=== PATIENT | male | born 1990 | race Caucasian/White ===

== ENCOUNTER 2016-12-09 19:43 | Emergency (ER) | payer SELFPAY ==
[~2016-12-09] VITALS: Ht 170.2 cm; Wt 80.0 kg
[~2016-12-09 19:43] MED LIST: SULF1TAB24 PO
[2016-12-09] MEDS ORDERED: FAMOTIDINE 20 MG/2 ML VIAL IVP ONE (20:00)
[2016-12-09] MEDS ORDERED: methylPREDNISolone SOD SUCC PF 125 MG/2 ML VIAL. IV ONE (20:00)
[2016-12-09] MEDS ORDERED: IV NORMAL SALINE 1,000ML 1,000 ML IV SCH (20:20)
--- NOTE | 2016-12-09 21:37 | PHYS DOC ---
General Chief Complaint: ALLERGIC REACTION Stated Complaint: ALLERGIC REACTION Time Seen by MD: 19:50 Source: patient Exam Limitations: no limitations Problems: History of Present Illness Initial Comments Pt is 26/M to ED c/o allergic rxn. Pt states earlier today he was stung right ear by bee. After about an hour states his head began to itch and he took benadryl. Thru next hour developed whole body red rash and facial swelling, came for evaluation. No cough/lump in throat/doc/sob, pt has h/o anaphylaxis with beesting ED VS stable 131/75, 97% RA. Timing/Duration: getting worse, other Severity: moderate Modifying Factors: improves with other Associated Symptoms: rash Allergies: Coded Allergies: bee venom protein (honey bee) (Verified Allergy, Severe, Anaphylaxis, 12/09) Past Medical History Medical History: no pertinent history Surgical History: no surgical history Family History Significant Family History: no pertinent family hx Social History Smoker: non-smoker Alcohol: none Drugs: none Review of Systems Constitutional: denies chills, denies diaphoresis, denies fever, denies malaise EENTM: see HPI, denies eye pain, denies blurred vision, denies tearing, ear pain, denies ear discharge, denies nose pain Respiratory: denies cough, denies shortness of breath, denies wheezing Cardiovascular: denies chest pain, denies palpitations, denies syncope Gastrointestinal: denies abdominal pain, denies diarrhea, denies nausea, denies vomiting Musculoskeletal: denies back pain, denies joint swelling, denies neck pain Skin: see HPI Psychiatric/Neurological: denies headache, denies numbness, denies paresthesia Immunological/Allergic: see HPI Physical Exam General Appearance: WD/WN, moderate distress Eyes: bilateral eye normal inspection, bilateral eye PERRL, bilateral eye EOMI Ear, Nose, Throat: hearing grossly normal, normal pharynx, other (facial redness/soft tissue swelling airway patent) Neck: non-tender, supple Respiratory: normal breath sounds, no respiratory distress Cardiovascular: normal peripheral pulses, regular rate, rhythm Back: no CVA tenderness, no vertebral tenderness Extremities: non-tender, normal inspection 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 2135: Checked on pt, he is dressed rash/swelling fully resolved. Epi pen , requesting rx for one. Requesting immediate discharge. Departure Time of Disposition: 21:36 Disposition: HOME, SELF-CARE Diagnosis: bee sting allergy Condition: IMPROVED Patient Instructions: Insect Sting Allergy Additional Instructions: Off work thru Sunday. Rest, no strenuous activity. Take OTC benadryl and pepcid while taking prednisone. Rx: prednisone 20mg #10 Follow up with your doctor next week for recheck. Return to ED with new or changing symptoms. RENETTA TENA DO Dec 09, 2016 21:37
[2016-12-09] MEDS ORDERED: EPIN0.3A8 IJ (21:43)
[2016-12-09] MEDS ORDERED: PRED20TA PO (21:43)
[2016-12-09 21:50] VITALS: BP 122/68
[2016-12-09] MEDS ORDERED: predniSONE 20 MG TABLET PO ONE (22:00)
== END 2016-12-09 21:55 | disposition home or self-care (01) ==
LOC: ER 19:43
DX: T63.441A Toxic effect of venom of bees, accidental (unintentional), initial encounter (principal); R21 Rash and other nonspecific skin eruption; Y92.89 Other specified places as the place of occurrence of the external cause; Z91.030 Bee allergy status
CPT/HCPCS: 96374; 96375; 99284; J2930; J7512; S0028

== ENCOUNTER 2017-01-03 05:04 | Emergency (ER) | payer SELFPAY ==
[~2017-01-03] VITALS: Ht 170.2 cm; Wt 83.9 kg
[~2017-01-03 05:04] MED LIST changes: +EPIN0.3A8 IJ; +PRED20TA PO
--- NOTE | 2017-01-03 05:30 | ED.ADGEN ---
Past History Past Medical History: No Pertinent History (MIREYA KESSLER MD) Past Surgical History: No Surgical History (MIREYA KESSLER MD) Alcohol Use: Rarely Drug Use: None (MIREYA KESSLER MD) Adult General Chief Complaint Chief Complaint ".. I ve been hurting really bad the last 5 days.. here in my Rt. upper and some down here in my stomach... I ve not had stool for 5 days.. I have passed gas.. but no stool.. I took a stool softer.. but nothing came out.. ".." Maybe I got a hernia or something.. it hurts when I try to go to the bathroom.. or when I strain to lift anything..." (MIREYA KESSLER MD) HPI HPI Patient is a 26 year old male who presents with generalized abd. pain. There is some localization to right upper quadrant and epigastric as well as right lower on palpation. Patient states he has not had a stool for 5 days but has passed some gas. Pt. states had pain off and on for sometime, but had been waiting on Insurance to get it checked out. Pt. does not relate pain to intake of any particular type of food. No history of prior dark or tarry stools. No history of gallbladder disease with him or family members. No history of trauma. No history of travel or specific ill contacts. 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 Pt. last ate a little peanut butter on bread at 2000 hrs.,. Pt. was unable to finish it sandwich because of nausea and stomach discomfort. No history of previous abdomen surgeries. No history of immunosuppression. Patient does smoke. Pt. drove himself here after work. Pt. took a narco before presenting to ED. Pt. states this helped his pain. Pt. decided to come to ED after he Google his symptoms and it said he might have a hernia or obstruction. (MIREYA KESSLER MD) Review of Systems Review of Systems Constitutional: Denies fever or chills [] Eyes: Denies change in visual acuity, redness, or eye pain [] HENT: Denies nasal congestion or sore throat [] Respiratory: Denies cough or shortness of breath [] Cardiovascular: No additional information not addressed in HPI [] GI: Complaints of abdominal pain, nausea,. Denies vomiting, bloody stools or diarrhea . Complaints of constipation. : Denies dysuria or hematuria [] Musculoskeletal: Denies back pain or joint pain [] Integument: Denies rash or skin lesions [] Neurologic: Denies headache, focal weakness or sensory changes [] Endocrine: Denies polyuria or polydipsia [] (MIREYA KESSLER MD) Family History Family History Noncontributory (MIREYA KESSLER MD) Current Medications Current Medications Current Medications Medications (Trade) Dose Ordered Sig/Ike Start Time Stop Time Status Last Admin Dose Admin Famotidine (Pepcid) 20 mg 1X ONCE 01/03/17 05:45 01/03/17 05:46 DC Info (Do NOT chart on this entry -- for MONITORING) 1 each PRN DAILY PRN 01/03/17 06:45 01/05/17 06:44 Iohexol (Omnipaque 240 Mg/ml) 50 ml 1X ONCE 01/03/17 06:30 01/03/17 06:31 DC Iohexol (Omnipaque 300 Mg/ml) 75 ml 1X ONCE 01/03/17 06:30 01/03/17 06:31 DC 01/03/17 07:20 75 ML Ketorolac Tromethamine (Toradol) 30 mg 1X ONCE 01/03/17 05:45 01/03/17 05:46 DC (EVON FREITAS MD) Current Medications See nursing for home meds (MIREYA KESSLER MD) Allergies Allergies Allergies Coded Allergies Type Severity Reaction Last Updated Verified bee venom protein (honey bee) Allergy Severe Anaphylaxis 01/03/17 Yes (EVON FREITAS MD) Physical Exam Physical Exam Constitutional: Well developed, well nourished, in moderately acute distress, non-toxic appearance. [] HENT: Normocephalic, atraumatic, bilateral external ears normal, oropharynx moist, no oral exudates, nose normal. Black shirley. Eyes: PERRLA, EOMI, conjunctiva normal, no discharge. [] Neck: Normal range of motion, no tenderness, supple, no stridor. [] Cardiovascular:Heart rate regular rhythm, no murmur [] Lungs & Thorax: Bilateral breath sounds equal at apexes with a few scattered wheezes auscultation [] Abdomen: Bowel sounds normal, soft, right upper quadrant and right lower quadrant tenderness on palpation. Some rebound to these areas. No mass or pulsatile structures. Circumcised male. Testicles nontender. Declines rectal at this time. Skin: Warm, dry, no erythema, no rash. Multiple tattoo's. Back: No tenderness, no CVA tenderness on percussion. Extremities: No tenderness, no cyanosis, no clubbing, ROM intact, no edema. No true psoas or heel tap. Neurologic: Alert and oriented X 3, normal motor function, normal sensory function, no focal deficits noted. [] Psychologic: Affect anxious, judgement normal, mood normal. [] (MIREYA KESSLER MD) Current Patient Data Vital Signs Vital Signs Date Time Temp Pulse Resp B/P (MAP) Pulse Ox O2 Delivery O2 Flow Rate FiO2 01/03/17 07:02 66 20 119/77 (91) 94 Room Air 01/03/17 05:13 97.6 (EVON FREITAS MD) Lab Results Laboratory Tests Test 01/03/17 05:30 01/03/17 05:48 White Blood Count 7.1 x10^3/uL (4.0-11.0) Red Blood Count 5.22 x10^6/uL (4.30-5.70) Hemoglobin 15.9 g/dL (13.0-17.5) Hematocrit 46.0 % (39.0-53.0) Mean Corpuscular Volume 88 fL (79-100) Mean Corpuscular Hemoglobin 30 pg (25-35) Mean Corpuscular Hemoglobin Concent 35 g/dL (31-37) Red Cell Distribution Width 12.9 % (11.5-14.5) Platelet Count 273 x10^3/uL (140-400) Neutrophils (%) (Auto) 55 % (31-73) Lymphocytes (%) (Auto) 33 % (24-48) Monocytes (%) (Auto) 8 % (0-9) Eosinophils (%) (Auto) 3 % (0-3) Basophils (%) (Auto) 1 % (0-3) Neutrophils # (Auto) 3.9 x10^3uL (1.8-7.7) Lymphocytes # (Auto) 2.3 x10^3/uL (1.0-4.8) Monocytes # (Auto) 0.6 x10^3/uL (0.0-1.1) Eosinophils # (Auto) 0.2 x10^3/uL (0.0-0.7) Basophils # (Auto) 0.1 x10^3/uL (0.0-0.2) Prothrombin Time 11.3 SEC (9.4-11.4) Prothrombin Time INR 1.1 (0.9-1.1) PTT 28 SEC (23-33) Sodium Level 139 mmol/L (136-145) Potassium Level 3.8 mmol/L (3.5-5.1) Chloride Level 102 mmol/L (98-107) Carbon Dioxide Level 29 mmol/L (21-32) Anion Gap 8 (6-14) Blood Urea Nitrogen 7 mg/dL (8-26) L Creatinine 0.8 mg/dL (0.7-1.3) Estimated GFR (Cockcroft-Gault) 118.8 BUN/Creatinine Ratio 9 (6-20) Glucose Level 84 mg/dL (70-99) Calcium Level 9.7 mg/dL (8.5-10.1) Total Bilirubin 0.7 mg/dL (0.2-1.0) Direct Bilirubin 0.2 mg/dL (0.0-0.2) Aspartate Amino Transferase (AST) 11 U/L (15-37) L Alanine Aminotransferase (ALT) 19 U/L (16-63) Alkaline Phosphatase 61 U/L (46-116) Troponin I Quantitative < 0.017 ng/mL (0-0.055) Total Protein 6.6 g/dL (6.4-8.2) Albumin 4.0 g/dL (3.4-5.0) Albumin/Globulin Ratio 1.5 (1.0-1.7) Amylase Level 37 U/L (25-115) Lipase 74 U/L (73-393) Urine Collection Type Unknown Urine Color Yellow Urine Clarity Clear Urine pH 6.5 Urine Specific [place] <=1.005 Urine Protein Neg (NEG-TRACE) Urine Glucose (UA) Neg mg/dL (NEG) Urine Ketones (Stick) Neg mg/dL (NEG) Urine Blood Neg (NEG) Urine Nitrite Neg (NEG) Urine Bilirubin Neg (NEG) Urine Urobilinogen Dipstick 0.2 mg/dL (0.2 mg/dL) Urine Leukocyte Esterase Neg (NEG) Urine RBC 0 /HPF (0-2) Urine WBC Rare /HPF (0-4) Urine Squamous Epithelial Cells Occ /LPF Urine Bacteria 0 /HPF (0-FEW) Urine Opiates Screen Pos (NEG) Urine Methadone Screen Neg (NEG) Urine Barbiturates Neg (NEG) Urine Phencyclidine Screen Neg (NEG) Urine Amphetamine/Methamphetamine Pos (NEG) Urine Benzodiazepines Screen Neg (NEG) Urine Cocaine Screen Neg (NEG) Urine Cannabinoids Screen Pos (NEG) Urine Ethyl Alcohol Neg (NEG) (EVON FREITAS MD) EKG EKG [] (MIREYA KESSLER MD) Radiology/Procedures Radiology/Procedures My interpretation of Acute abd. show no free air under diaphragm. There is stool throughout the colon. Isolated bowel loop on the right. Chest shows no acute cardiopulmonary findings.[] (MIREYA KESSLER MD) Radiology/[place] [address] IMAGING REPORT Signed PATIENT: THOMPSON KASPER ACCOUNT: [id number] : 1990 LOCATION: ER AGE: 26 SEX: M EXAM STATUS: REG ER ORD. PHYSICIAN: MIREYA KESSLER MD REASON: Right sided abdominal pain, constipation PROCEDURE: CT ABD PELV W/ORAL&IV CONTRAST CT of the abdomen and pelvis with contrast, 01/03/2017: History: Abdominal pain, constipation Multidetector CT imaging was performed following oral and IV administration of contrast. No hepatic abnormality is detected. The gallbladder is unremarkable. The pancreas shows no abnormality. The spleen is of normal size. A tiny opacity is noted in the lower pole of the left kidney compatible with a nonobstructing calculus. The kidneys are otherwise unremarkable. The ureters are not dilated. Two small lower pelvic calcifications on the right are probably phleboliths. No abdominal or pelvic adenopathy is seen. There is a moderate amount of stool in the colon. There is no evidence of bowel obstruction. The appendix is visualized and shows no abnormality. No free fluid or free air is evident in the abdomen or pelvis. IMPRESSION: 1. Tiny nonobstructing left intrarenal calculus. 2. No acute abdominal or pelvic abnormality is detected. PQRS Compliance Statement: (EVON FREITAS MD) Course & Med Decision Making Course & Med Decision Making Pertinent Labs and Imaging studies reviewed. (See chart for details) Suspect symptom most likely Gastritis or Biliary colic. Exam may be limited by his intake of "narco" before presenting to ED. Will check out to Dr. Freitas at shift change for disposition. [] (MIREYA KESSLER MD) Course & Med Decision Making Patient is a pleasant 26-year-old male who is a turnover patient had . Patient had an EKG done at 6:09 AM 01/03/2017 read by me demonstrate P wave 2 every QRS normal sinus rhythm with a heart rate of 62. Interval 160 which is normal, QRS width of 108 which is normal, QTC of 42 which is normal, this is normal EKG with no ST segment T-wave changes consistent with acute coronary ischemia. Patient's pain on reevaluation at 6:10 AM it is resolved at the patient time as patient took a Kosse from a colleague. He refused Pepcid and Toradol here in the emergency department. Time is now 6:30 AM patient's urinalysis is clear signs of infection, patient has a UDS is positive for amphetamines secondary to his Adderall usage and THC secondary to smoking a marijuana earlier last week. Patient's CBC is normal, patient's CMP is normal patient's LFTs and normal lipase is normal troponin is normal. Patient is presently drinking contrast for CT scan of the abdomen pelvis rule out cholelithiasis. A training bedside ultrasound performed by me looking at the right upper quadrant straits no signs of cholelithiasis, no pericholecystic fluid, no gallbladder wall thickening. Patient is no Velez sign and exam is still pain-free at this time. Time is now 7 AM patient is sleeping quietly waiting for his CAT scan be completed. (EVON FREITAS MD) Final Impression Final Impression 1. Abdomen pain[] Problems: (MIREYA KESSLER MD) Final Impression Abdominal pain, constipation, nonobstructing kidney stone left intrarenal Problems: (EVON FREITAS MD) Dragon Disclaimer Dragon Disclaimer This electronic medical record was generated, in whole or in part, using a voice recognition dictation system. (MIREYA KESSLER MD) MIREYA KESSLER MD Jan 03, 2017 05:30 EVON FREITAS MD Jan 03, 2017 06:17
[2017-01-03] MEDS ORDERED: FAMOTIDINE 20 MG/2 ML VIAL IVP ONE (05:45)
[2017-01-03] MEDS ORDERED: KETOROLAC 30 MG/ML VIAL. IV ONE (05:45)
[2017-01-03 06:10] LABS: BARBITURATES NEG (NEG); BENZODIAZEPINES NEG (NEG); CANNABINOIDS POS (NEG); COCAINE NEG (NEG); METHADONE NEG (NEG); OPIATES POS (NEG); PHENCYCLIDINE NEG (NEG)
[2017-01-03 06:12] LABS: AMPHETAMINE/METHAMPHETAMINE POS (NEG)
[2017-01-03 06:14] LABS: BILIRUBIN,URINE NEG (NEG); CLARITY,URINE CLEAR; COLOR,URINE YELLOW; GLUCOSE,URINE NEG (NEG); NITRITE,URINE NEG (NEG); RBC,URINE 0 /HPF (0-2); UROBILINOGEN,URINE 0.2 mg/dL (0.2 mg/dL); WBC,URINE RARE /HPF (0-4)
[2017-01-03 06:14] LABS: BASO # 0.1 x10^3/uL (0.0-0.2); BASO % 1 % (0-3); EOS # 0.2 x10^3/uL (0.0-0.7); EOS % 3 % (0-3); HEMOGLOBIN 15.9 g/dL (13.0-17.5); LYMPH # 2.3 x10^3/uL (1.0-4.8); LYMPH % 33 % (24-48); MEAN CORPUSCULAR HEMOGLOBIN 30 pg (25-35); MEAN CORPUSCULAR HGB CONC 35 g/dL (31-37); MEAN CORPUSCULAR VOLUME 88 fL (79-100); MONO # 0.6 x10^3/uL (0.0-1.1); MONO % 8 % (0-9); NEUT # 3.9 x10^3uL (1.8-7.7); NEUT % 55 % (31-73); PLATELET COUNT 273 x10^3/uL (140-400); RED BLOOD COUNT 5.22 x10^6/uL (4.30-5.70); RED CELL DISTRIBUTION WIDTH 12.9 % (11.5-14.5); WHITE BLOOD COUNT 7.1 x10^3/uL (4.0-11.0)
[2017-01-03 06:15] LABS: BACTERIA,URINE 0 /HPF (0-FEW); SQUAMOUS EPITHELIAL CELL,UR OCC /LPF
--- NOTE | 2017-01-03 06:15 | EKG ---
[address] [address] Test Date: 2017-01-03 Test Time: 06:09:08 Pat Name: THOMPSON KASPER Department: Room: Gender: M [employer]: : 1990 Requested By: MIREYA KESSLER Order Number: [id number] Reading MD: Castro Amaro Measurements Intervals [place] Rate: 62 P: 51 NE: 160 QRS: 81 QRSD: 108 T: 26 QT: 394 QTc: 402 Interpretive Statements SINUS RHYTHM Electronically Signed On 01-10-2017 8:16:11 CDT by Castro Amaro
[2017-01-03 06:18] LABS: ALBUMIN/GLOBULIN RATIO 1.5 (1.0-1.7); CALCIUM 9.7 mg/dL (8.5-10.1); CREATININE 0.8 mg/dL (0.7-1.3); DIRECT BILIRUBIN 0.2 mg/dL (0.0-0.2); GFR 118.8; POTASSIUM 3.8 mmol/L (3.5-5.1); TOTAL BILIRUBIN 0.7 mg/dL (0.2-1.0); TOTAL PROTEIN 6.6 g/dL (6.4-8.2)
[2017-01-03] MEDS ORDERED: IOHEXOL 300 MG/ML 75 ML VIAL. IV ONE (06:30)
[2017-01-03] MEDS ORDERED: IOHEXOL 240 MG/ML 50ML VIAL. PO ONE (06:30)
[2017-01-03] MEDS ORDERED: CONTRAST GIVEN MC PRN (06:45)
--- NOTE | 2017-01-03 07:09 | RAD ---
Acute abdomen series with chest, 3 views, 01/03/2017: History: Right-sided abdominal pain, constipation There is a moderate amount of stool scattered throughout the colon. The abdominal gas pattern is otherwise unremarkable. No free air seen in the abdomen. There is no evidence of organomegaly. Lower pelvic calcifications on the right are probably phleboliths. The heart size is normal. The lungs are clear. IMPRESSION: Increased stool throughout the colon.
--- NOTE | 2017-01-03 07:40 | RAD ---
CT of the abdomen and pelvis with contrast, 01/03/2017: History: Abdominal pain, constipation Multidetector CT imaging was performed following oral and IV administration of contrast. No hepatic abnormality is detected. The gallbladder is unremarkable. The pancreas shows no abnormality. The spleen is of normal size. A tiny opacity is noted in the lower pole of the left kidney compatible with a nonobstructing calculus. The kidneys are otherwise unremarkable. The ureters are not dilated. Two small lower pelvic calcifications on the right are probably phleboliths. No abdominal or pelvic adenopathy is seen. There is a moderate amount of stool in the colon. There is no evidence of bowel obstruction. The appendix is visualized and shows no abnormality. No free fluid or free air is evident in the abdomen or pelvis. IMPRESSION: 1. Tiny nonobstructing left intrarenal calculus. 2. No acute abdominal or pelvic abnormality is detected. PQRS Compliance Statement: One or more of the following individualized dose reduction techniques were utilized for this examination: 1. Automated exposure control 2. Adjustment of the mA and/or kV according to patient size 3. Use of iterative reconstruction technique
[2017-01-03 07:51] VITALS: BP 115/59
[2017-01-03] MEDS ORDERED: DOCU-109 PO (07:52)
== END 2017-01-03 07:55 | disposition home or self-care (01) ==
LOC: ER 05:04
DX: N20.0 Calculus of kidney (principal); K59.00 Constipation, unspecified; F17.200 Nicotine dependence, unspecified, uncomplicated; Z91.030 Bee allergy status
CPT/HCPCS: 36415; 74022; 74177; 80053; 80307; 81001; 82150; 82248; 83690; 84484; 85025; 85610; 85730; 93005; 99285; Q9967; G0479

== ENCOUNTER 2017-03-12 21:29 | Emergency (ER) | payer SELFPAY ==
[~2017-03-12] VITALS: Ht 170.2 cm; Wt 80.0 kg
[~2017-03-12 21:29] MED LIST changes: +DOCU-109 PO
[2017-03-12 21:30] VITALS: BP 145/95
[2017-03-12] MEDS ORDERED: hydrOXYzine HCL 25 MG TABLET PO PRN (21:45)
[2017-03-12] MEDS ORDERED: predniSONE 20 MG TABLET PO ONE (21:45)
[2017-03-12] MEDS ORDERED: FAMOTIDINE 20 MG TABLET PO ONE (21:45)
[2017-03-12] MEDS ORDERED: HYDR25CA PO (21:47)
[2017-03-12] MEDS ORDERED: FAMO-63 PO (21:47)
[2017-03-12] MEDS ORDERED: PRED20TA PO (21:47)
--- NOTE | 2017-03-12 21:47 | PHYS DOC ---
Past History Past Medical History: No Pertinent History Past Surgical History: No Surgical History Alcohol Use: Rarely Drug Use: None Adult General Chief Complaint Chief Complaint: SKIN PROBLEM [facility] Patient is a pleasant 26-year-old male presents with urticaria-like rash began several hours prior to arrival. He is concerned that this is improved with Benadryl but does not return. He denies any travel outside the country, denies any consumption of new foods, exposure new perfumes, colognes, antibiotics or medications. Patient denies any shortness of breath, abdominal pain, blood in the stool blood in his mouth, headaches, joint swelling or rash on his palms or soles. He further denies any history of tick bites or other insect envenomations denies any fevers, neck pain or stiffness. Review of Systems Review of Systems Constitutional: Denies fever or chills [] Eyes: Denies change in visual acuity, redness, or eye pain [] HENT: Denies nasal congestion or sore throat [] Respiratory: Denies cough or shortness of breath [] Cardiovascular: No additional information not addressed in HPI [] GI: Denies abdominal pain, nausea, vomiting, bloody stools or diarrhea [] : Denies dysuria or hematuria [] Musculoskeletal: Denies back pain or joint pain [] Integument: Patient has itchy urticarial rash on his upper limbs, axilla and behind his legs. It is moving Neurologic: Denies headache, focal weakness or sensory changes [] Endocrine: Denies polyuria or polydipsia [] All other systems were reviewed and found to be within normal limits, except as documented in this note. Allergies Allergies Allergies Coded Allergies Type Severity Reaction Last Updated Verified bee venom protein (honey bee) Allergy Severe Anaphylaxis 01/03/17 Yes Physical Exam Physical Exam Other vital signs recorded on the chart at this time patient mildly hypertensive otherwise normal. Patient is not tachypnea or hypoxic. Constitutional: Well developed, well nourished, no acute distress, non-toxic appearance. [] HENT: Normocephalic, atraumatic, bilateral external ears normal, oropharynx moist, no oral exudates, nose normal. [] Eyes: PERRLA, EOMI, conjunctiva normal, no discharge. [] Neck: Normal range of motion, no tenderness, supple, no stridor. [] Cardiovascular:Heart rate regular rhythm, no murmur [] Lungs & Thorax: Bilateral breath sounds clear to auscultation [] Skin: Warm, dry, patient is a slight urticarial rash very states of development on his legs and his arms and his axilla chest wall and some of his face. There is no palm or sole involvement, there is no central target lesions. There is no petechiae or purpura. There are no vesicles Extremities: No tenderness, no edema. [] Neurologic: Alert and oriented X 3, normal speech Psychologic: Affect normal, judgement normal, mood normal. [] EKG EKG [] Radiology/Procedures Radiology/Procedures [] Course & Med Decision Making Course & Med Decision Making Pertinent Labs and Imaging studies reviewed. (See chart for details) []Patient presents with urticaria in various states of development on his upper and lower extremities. He denies any other systemic complaints, there are no evidence of anaphylaxis at this time. The only system involved at this time is his skin. Patient was given Atarax, Pepcid and prednisone. rash medical decision making reevaluation: The patient is now resting comfortably and feels better, is alert, is nontoxic, and is in no acute distress. The patient has a normal mental status and is neurologically intact. The rash presenting today as part of patient despite does not have any petechiae purpura, there is no palm or sole involvement, there is no joint pain or swelling, there are no mucous membrane lesions, no signs of abscess, and no bullae. The patient appears well, has no fever, no altered mental status, or signs of systemic toxicity. The history, exam, and diagnostic testing (if any) and current condition did not demonstrate signs of sepsis, Altha spotted fever, meningitis, meningococcemia, Lyme disease, toxic shock syndrome, disseminated gonorrhea, endocarditis, measles, mumps, rubella, necrotizing fasciitis, TEN, Kevin Richardson syndrome, pemphigus vulgaris, dress syndrome, staphylococcal scalded skin syndrome or other systemic illness or cardiac further treatment, testing or consultation in the emergency department. The patient's vital signs have been stable, the patient condition is stable and appropriate for discharge. The patient will pursue further outpatient evaluation and primary care management as indicated in the discharge instructions.. discharge: I've spoken with the patient and/or caregivers. I've explained the patient's condition, diagnosis and treatment plan based on information available to me at this time. I've answered the patient's and/or caregivers questions and addressed any concerns. The patient and/or caregivers have a good understanding the patient's diagnosis, condition and treatment plan as can be expected at this point. Vital signs have been stabilized. The patient's condition is stable for discharge from the emergency department. The patient will pursue further outpatient evaluation with her primary care provider or other designated consulting physician as outlined in the discharge instructions. Patient and/or caregivers are agreeable to this plan of care and follow-up instructions have been explained in detail. The patient and/or caregivers have received these instructions in written format and expressed understanding of these discharge instructions. The patient and her caregivers are aware that if any significant change in condition or worsening of symptoms should prompt him to immediately return to this of the closest emergency department. If an emergent department is not readily available I would encourage him to call 911. Dragon Disclaimer Dragon Disclaimer This electronic medical record was generated, in whole or in part, using a voice recognition dictation system. Departure Departure: Impression: Primary Impression: Shante Disposition: 01 HOME, SELF-CARE Condition: IMPROVED Referrals: [facility] (PCP) Patient Instructions: Shante Additional Instructions: discharge: I've spoken with the patient and/or caregivers. I've explained the patient's condition, diagnosis and treatment plan based on information available to me at this time. I've answered the patient's and/or caregivers questions and addressed any concerns. The patient and/or caregivers have a good understanding the patient's diagnosis, condition and treatment plan as can be expected at this point. Vital signs have been stabilized. The patient's condition is stable for discharge from the emergency department. The patient will pursue further outpatient evaluation with her primary care provider or other designated consulting physician as outlined in the discharge instructions. Patient and/or caregivers are agreeable to this plan of care and follow-up instructions have been explained in detail. The patient and/or caregivers have received these instructions in written format and expressed understanding of these discharge instructions. The patient and her caregivers are aware that if any significant change in condition or worsening of symptoms should prompt him to immediately return to this of the closest emergency department. If an emergent department is not readily available I would encourage him to call 911. Scripts Famotidine (PEPCID) 20 Mg Tablet 1 TAB PO BID, #20 TAB 0 Refills Prov: EVON FREITAS MD 03/12/17 Prednisone (PREDNISONE) 20 Mg Tablet 3 TAB PO DAILY for 5 Days, #15 TAB Prov: EVON FREITAS MD 03/12/17 Hydroxyzine Pamoate (VISTARIL) 25 Mg Capsule 1 CAP PO BID, #30 CAP 0 Refills Prov: EVON FREITAS MD 03/12/17 EVON FREITAS MD Mar 12, 2017 21:47
== END 2017-03-12 22:35 | disposition home or self-care (01) ==
LOC: ER 21:29
DX: L50.9 Urticaria, unspecified (principal); Z91.030 Bee allergy status
CPT/HCPCS: 99284; J7512

== ENCOUNTER 2018-02-07 20:53 | Emergency (ER) | payer SELFPAY ==
[~2018-02-07] VITALS: Ht 167.6 cm; Wt 77.1 kg
[~2018-02-07 20:53] MED LIST changes: +FAMO-63 PO; +HYDR25CA PO
[2018-02-07] MEDS ORDERED: EPINEPHrine 1 MG/ML AMPUL ONE (21:04)
--- NOTE | 2018-02-07 21:11 | PHYS DOC ---
Past History Past Medical History: No Pertinent History Past Surgical History: No Surgical History Alcohol Use: Rarely Drug Use: None Adult General Chief Complaint Chief Complaint: ALLERGIC REACTION HPI HPI Patient is a 27-year-old male who presents to the emergency department for evaluation. He states he started developing some hives on the volar surface of his forearms and his neck about an hour prior to arrival. He states he has a history of multiple prior similar episodes. He states he underwent allergy testing many years ago, and didn't really find any definitive allergen, but was told he might be slightly allergic to dust mites. He denies any new medications or household products. Denies any shortness of breath, or throat tightening or voice changes he took 5 25 mg Benadryl tablets prior to arrival.. Soon after arrival to the emergency department, the patient began feeling lightheaded, asked for something to drink, and his blood pressure dropped to the 70s. He was placed in Trendelenburg and epinephrine was administered intramuscularly. Review of Systems Review of Systems Constitutional: Denies fever or chills [] Eyes: Denies change in visual acuity, redness, or eye pain [] HENT: Denies nasal congestion or sore throat [] Respiratory: Denies cough or shortness of breath [] Cardiovascular: The patient denies any shortness of breath, chest pain, palpitations, or orthopnea[] GI: Denies abdominal pain, nausea, vomiting, bloody stools or diarrhea [] : Denies dysuria or hematuria [] Musculoskeletal: Denies back pain or joint pain [] Integument: Small urticarial lesions on the anterior surface of the forearms bilaterally.[] Neurologic: Denies headache, focal weakness or sensory changes [] Endocrine: Denies polyuria or polydipsia [] All other systems were reviewed and found to be within normal limits, except as documented in this note. Current Medications Current Medications Current Medications Medications (Trade) Dose Ordered Sig/Ike Start Time Stop Time Status Last Admin Dose Admin Epinephrine HCl 0.3 mg 1X ONCE 02/07/18 21:15 02/07/18 21:16 UNV Allergies Allergies Allergies Coded Allergies Type Severity Reaction Last Updated Verified bee venom protein (honey bee) Allergy Severe Anaphylaxis 01/03/17 Yes Physical Exam Physical Exam PHYSICAL EXAM: CONSTITUTIONAL: Well developed, well nourished HEAD: normocephalic, atraumatic EENT: PERRL, EOMI. Conjunctivae normal color, sclerae non-icteric; moist mucous membranes. The airway is patent. There is no pharyngeal edema or erythema. The voice is normal. There is no stridor. NECK: Supple, non-tender; no meningismus. LUNGS: Lungs CTA, breathing even and unlabored. Normal air movement. HEART: Regular rate and rhythm, no murmur CHEST: No deformity; non-tender ABDOMEN: The abdomen is soft, and non-tender, no masses or bruits. EXTREM: Normal ROM; no deformity, no calf tenderness. Normal pulses palpable in all extremities. There is no pedal edema. SKIN: There are small urticarial lesions on the volar surface of the forearms bilaterally and the anterior surface of the neck. No other rash; no diaphoresis NEURO: Alert; normal speech and cognition; CN's grossly intact; strength grossly intact without focal deficit. BACK: No CVA TTP. EKG EKG [] Radiology/Procedures Radiology/Procedures [] Course & Med Decision Making Course & Med Decision Making 9:10 PM: Initial assessment in the emergency Department reveals a patient who has a prior history of allergic reactions, who appears to present with a mild local skin reaction, but became hypotensive. Despite relation to the large amount of Benadryl he took prior to arrival, or vagal episode, or anaphylaxis. The patient will be treated with IV fluids and Benadryl. Laying the patient in the Trendelenburg position did start to improve his blood pressure. He will be closely monitored. 9:55 PM: The patient's condition has significantly improved and he is feeling all better. His itchiness and rash have resolved and he is normotensive and is not dizzy. He would like to go home. I'm doubtful that his episode of hypotension is related to true anaphylaxis. I discussed appropriate use of Benadryl, the need for close PCP follow-up and return precautions as well as home medication care plan. Kelvin Disclaimer Kelvin Disclaimer This electronic medical record was generated, in whole or in part, using a voice recognition dictation system. Departure Departure: Impression: Primary Impression: Allergic reaction Additional Impression: Near syncope Disposition: 01 HOME, SELF-CARE Condition: STABLE Patient Instructions: Allergies, Generic, Near-Syncope Additional Instructions: Take Benadryl 25-50 mg every 6 hours for the next 3 days. Use caution as this may cause sedation. Additionally, take Pepcid AC 10 mg twice daily for the next 3 days. This medicine is available [id number]. Use the prescribed steroids as instructed. Return to medical care for any new, or worsening symptoms, the development of shortness of breath, new rash, dizziness lightheadedness, fevers, or any other new, or concerning symptoms. Scripts Prednisone (PREDNISONE) 20 Mg Tablet 2 TAB PO DAILY for - for 5 Days, #10 TAB Prov: ILDA ENNIS MD 02/07/18 Problem Qualifiers ILDA ENNIS MD Feb 07, 2018 21:11
[2018-02-07] MEDS ORDERED: methylPREDNISolone SOD SUCC PF 125 MG/2 ML VIAL. IV ONE (21:15)
[2018-02-07] MEDS ORDERED: EPINEPHrine 1 MG/ML AMPUL IM ONE (21:15)
[2018-02-07] MEDS ORDERED: IV NORMAL SALINE 1,000ML 1,000 ML IV ONE (21:15)
[2018-02-07] MEDS ORDERED: FAMOTIDINE 20 MG/2 ML VIAL IVP ONE (21:15)
[2018-02-07 21:55] VITALS: BP 118/65
[2018-02-07] MEDS ORDERED: PRED20TA PO (21:56)
== END 2018-02-07 22:00 | disposition home or self-care (01) ==
LOC: ER 20:53
DX: T78.40XA Allergy, unspecified, initial encounter (principal); R55 Syncope and collapse; Z91.030 Bee allergy status; X58.XXXA Exposure to other specified factors, initial encounter
CPT/HCPCS: 96361; 96372; 96374; 96375; 99283; J0171; J2930; J3490; J7030